=== PATIENT | male | born 1950 | race Caucasian/White ===

== ENCOUNTER 2018-07-13 11:44 | Outpatient (CLI) | payer BC, MEDICARE | END 2018-07-13 23:59 | disposition home or self-care (01) | LOC: RAD 11:44 | PROVIDERS: ATTEND Family Medicine | DX: R13.14 Dysphagia, pharyngoesophageal phase (principal); K21.9 Gastro-esophageal reflux disease without esophagitis; Z79.899 Other long term (current) drug therapy | CPT/HCPCS: 74230 ==

== ENCOUNTER 2024-06-15 05:59 | Day surgery (SDC) | payer BC, MEDICARE ==
[~2024-06-15] VITALS: Ht 170.2 cm; Wt 79.5 kg
[~2024-06-15 05:59] MED LIST: OMEP40CA21 PO
[2024-06-15 06:47] VITALS: BP 154/72; PULSE 73; RESP 16; TEMP 97.2
[2024-06-15] MEDS ORDERED: simethicone 40mg/0.6ml oral drops 30ml ONE (07:35)
[2024-06-15 07:55] VITALS: BP 105/11; PULSE 61; RESP 12; O2SAT 100
[2024-06-15] MEDS ORDERED: propofol inj 20 ML IV ONE (07:59)
[2024-06-15 08:05] VITALS: BP 123/64; PULSE 71; RESP 12; O2SAT 99
[2024-06-15 08:15] VITALS: BP 133/65; PULSE 70; RESP 11; O2SAT 97
[2024-06-15 08:25] VITALS: BP 128/67; PULSE 64; RESP 12; O2SAT 97
[2024-06-15 08:35] VITALS: BP 148/74; PULSE 65; RESP 12; O2SAT 99
== END 2024-06-15 08:50 | disposition home or self-care (01) ==
LOC: GI LAB 05:59
PROVIDERS: ATTEND Internal Medicine Gastroenterology
DX: R13.10 Dysphagia, unspecified (principal); K22.2 Esophageal obstruction; K44.9 Diaphragmatic hernia without obstruction or gangrene; K21.00 Gastro-esophageal reflux disease with esophagitis, without bleeding; Z79.899 Other long term (current) drug therapy
CPT/HCPCS: 43239; 43248; J2704; J7030; Z7512; 88305; A4618; A4620

== ENCOUNTER 2025-05-31 13:28 | Outpatient (CLI) | payer BC ==
--- NOTE | 2025-06-01 11:08 | CONSULTATION ---
DATE OF CONSULTATION: 05/31/2025 DICTATING PHYSICIAN: Sary Sanchez M.S., [facility] MODIFIED BARIUM SWALLOW STUDY REPORT REFERRING PHYSICIAN: Aliyah Gaines MD. HISTORY OF PRESENT ILLNESS: The patient is a 75-year-old male and consents to this evaluation. History was obtained from the patient and medical records. The patient reports symptoms of dysphagia including difficulty with swallowing food items, such as bread and where it takes him 2-3 swallows in order to move it past the level of his larynx. He often has to utilize milk to help wash the food item down. He reports that this has been occurring for over a year. He denies difficulty with liquids at this time. The patient reports that he has a herniated esophagus and that he had underwent esophageal dilation about 8 months ago and this made no difference in his symptoms of dysphagia. He also reports that he has had his gallbladder removed and he has been watching his diet due to prior history of reflux. CURRENT DIET: The patient does not consume caffeine. He has not utilized tobacco products in 10 years. He does not consume alcohol. He very rarely has chocolate as he avoids it because of his GERD. In terms of dairy products, the patient has cut out ice cream and cottage cheese. He does continue to have about 2 gallons of non-fat milk a week as he has noticed that it does not appear to have any effect on his symptoms of GERD and he also reports he did have 1 instance of difficulty with swallowing a large amount of milk. MEDICATIONS: None. PARAMETERS: The patient is seated in a lateral 90-degree view and administered the usual protocol of thin and nectar-thick liquids, puree and solid consistencies, as well as self-regulated boluses of thin liquids from the cup. RESULTS: In the oral stage of the swallow, lingual strength was within functional limits. Oral transit was characterized by reduced lingual palatal stripping secondary to reduced tongue base retraction and so there was a mild to moderate oral residue on the tongue base. In the pharyngeal stage of the swallow, tongue base retraction was mildly reduced. Swallow initiation was within functional limits. Anterior movement of the posterior pharyngeal wall was observed. It was noted that when the patient's head was tilted back, the epiglottic inversion was mildly reduced as the epiglottis would hit a part of the posterior pharyngeal wall that was more protruded, but when he had his head in a neutral position that it would fully invert. Anterior and superior movement of the hyoid was within functional limits. There was a mild pharyngeal residue at the level of the vallecula and PES opening. PES opening was within functional limits. At no time was the patient noted to penetrate or aspirate on any of the bolus sizes or consistencies. ANTERIOR, POSTERIOR VIEW: In the AP plane, there was no proximal movement of the various boluses. IMPRESSION: The patient demonstrates with what appears to be a mild oropharyngeal stage swallowing disorder characterized by reduced tongue base retraction. DIAGNOSES: R13.12, Dysphagia, oropharyngeal phase; K21.9, Gastroesophageal reflux disease. PATIENT EDUCATION: Immediately following modified barium swallow study, the patient was able to view the results. The patient was able to see how the current status of the swallowing mechanism decreases his ability to swallow normally. He was educated on keeping his head in a neutral position when swallowing due to what was observed with his head tilting back and decreased epiglottic inversion. He was also educated on a recommendation for speech therapy to strengthen the muscles involved in swallowing and agreed to participate at this time. RECOMMENDATIONS: It is recommended that the patient receive swallowing therapy 1 time weekly for 12 weeks to improve the strength of the swallowing musculature to ensure airway safety protection and prevent aspiration. LONG-TERM GOALS: The patient will maintain adequate hydration/nutrition with optimum safety and efficiency of swallow function on p.o. intake with overt signs and symptoms of aspiration decreased to once weekly for the highest possible diet level. PROGNOSIS: Prognosis for the patient is good in terms of patient motivation and willingness to learn. FUNCTIONAL ORAL INTAKE: The FOIS was administered to establish and document a change in the functional eating activities of this patient over time. This is a 7-point scale with 1 indicating no oral intake and totally tube dependent and 7 indicating total oral intake with no restrictions. This patient received a 6, which indicates he has a total oral diet with multiple consistencies without special preparation, but with specific food limitations and precautions. G-CODE: [id number]. Thank you very much for asking me to participate in the care of this kind patient. Should you have any questions regarding this evaluation or recommendations, please do not hesitate to contact me at [phone]. During this examination, 2.42 minutes of fluoroscopy time and 25.06 CAK mGy were utilized. Sary Sanchez M.S., [facility] TID: [id number] RECEIPT: [id number] SEAN ERNANDEZ
== END 2025-05-31 23:59 | disposition home or self-care (01) ==
LOC: RAD 13:28
PROVIDERS: ATTEND Family Medicine
DX: R13.12 Dysphagia, oropharyngeal phase (principal); K21.9 Gastro-esophageal reflux disease without esophagitis
CPT/HCPCS: 74230